=== PATIENT | male | born 1980 | race Caucasian/White ===

== ENCOUNTER 2023-09-09 12:07 | Outpatient (CLI) | payer OTHER | END 2023-09-09 12:08 | disposition home or self-care (01) | LOC: CSHCT 12:07 | PROVIDERS: ATTEND Neurological Surgery | DX: M54.12 Radiculopathy, cervical region (principal); Z98.1 Arthrodesis status; M48.02 Spinal stenosis, cervical region | CPT/HCPCS: 72125 ==

== ENCOUNTER 2023-12-13 09:06 | Outpatient (CLI) | payer OTHER | END 2023-12-13 09:07 | disposition home or self-care (01) | LOC: CSHCT 09:06 | PROVIDERS: ATTEND Neurological Surgery | DX: M47.26 Other spondylosis with radiculopathy, lumbar region (principal); Z98.1 Arthrodesis status | CPT/HCPCS: 72131 ==